=== PATIENT | male | born 1995 | race Hispanic/Latino ===

== ENCOUNTER 2021-11-20 12:30 | Emergency (ER) | payer SELFPAY ==
--- NOTE | 2021-11-20 15:14 | ER ---
Nurse's Notes [facility] Name: Casimiro Jones Age: 26 yrs Sex: Male : 1995 Arrival Date: 11/20/2021 Time: 12:32 Bed Waiting Private MD: Diagnosis: Influenza B Presentation: 11/20 12:51 Chief complaint: Patient states: he has been having throat pain for approx one week. ap3 patient states the pain has been getting worse over the last 2 days, that it wakes him up in the middle of the night. patient also complains of cough and congestion. Coronavirus screen: chills, congestion, cough unrelated to allergies. Ebola Screen: No symptoms or risks identified at this time. Initial Sepsis Screen: Does the patient meet any 2 criteria? No. Patient's initial sepsis screen is negative. Does the patient have a suspected source of infection? No. Patient's initial sepsis screen is negative. Risk Assessment: Do you want to hurt yourself or someone else? Patient reports no desire to harm self or others. Onset of symptoms was November 13, 2021. 12:51 Method Of Arrival: Ambulatory ap3 12:51 Acuity: FIONA 4 ap3 Triage Assessment: 12:54 General: Appears in no apparent distress. uncomfortable, Behavior is calm, cooperative. ap3 Pain: Complains of pain in throat. EENT: Reports nasal congestion nasal discharge pain when swallowing. Neuro: Level of Consciousness is awake, alert, obeys commands, Oriented to person, place, time, situation, Appropriate for age. Cardiovascular: Patient's skin is warm and dry. Respiratory: Reports cough that is Airway is patent Respiratory effort is even, unlabored. Historical: - Allergies: 12:53 amoxicillin; ap3 - Home Meds: 12:53 None [Active]; ap3 - PMHx: 12:53 None; ap3 - Immunization history:: Client reports having NOT received the Covid vaccine. - Social history:: Smoking status: Reported history of juuling and/or vaping. Patient uses alcohol, weekly. Screenin:55 Abuse screen: Denies threats or abuse. Nutritional screening: No deficits noted. ap3 Tuberculosis screening: No symptoms or risk factors identified. Assessment: 15:34 Reassessment: Patient appears in no apparent distress at this time. Patient and/or ss family updated on plan of care and expected duration. Pain level reassessed. Patient denies pain at this time. Patient states symptoms have improved. Vital Signs: 12:51 BP 146 / 89; Pulse 73; Resp 17; Temp 98.9; Pulse Ox 100% ; Weight 74.84 kg; Height 5 ap3 ft. 10 in. (177.80 cm); 12:51 Body Mass Index 23.67 (74.84 kg, 177.80 cm) ap3 ED Course: 12:32 Patient arrived in ED. mr 12:53 Triage completed. ap3 12:55 Arm band placed on right wrist. ap3 12:58 Jay Bell PA is PHCP. [facility] 12:58 Luigi Angelo MD is Attending Physician. [facility] 15:34 Maryam Art, MERCEDEZ is Primary Nurse. ss 15:34 Patient has correct armband on for positive identification. Bed in low position. ss 15:35 No provider procedures requiring assistance completed. Patient did not have IV access ss during this emergency room visit. Administered Medications: No medications were administered Medication: 15:34 VIS not applicable for this client. ss Outcome: 15:13 Discharge ordered by . [facility] 15:35 Discharged to home ambulatory. ss 15:35 Condition: good 15:35 Discharge instructions given to patient, Instructed on discharge instructions, follow up and referral plans. Demonstrated understanding of instructions, follow-up care. 15:35 Patient left the ED. ss Signatures: Jay Bell PA PA jmm Dilma Blake mr Maryam Art, MERCEDEZ NEWSOME Zahra Virk RN RN ap3
--- NOTE | 2021-11-20 15:14 | EDPHYS ---
Physician Documentation [facility] Name: Casimiro Jones Age: 26 yrs Sex: Male : 1995 Arrival Date: 11/20/2021 Time: 12:32 Bed Waiting Private MD: ED Physician Luigi Angelo HPI: 11/20 12:56 This 26 yrs old Male presents to ER via Ambulatory with complaints of Sore jmm Throat, Congestion. 12:56 The patient presents with sore throat. Onset: The symptoms/episode began/occurred jmm gradually, 1 week(s) ago. Modifying factors: The symptoms are alleviated by nothing, the symptoms are aggravated by nothing. Associated signs and symptoms: Pertinent positives: fever, flu-like symptoms, Sore throat. It is unknown whether or not the patient has had similar symptoms in the past. Historical: - Allergies: 12:53 amoxicillin; ap3 - Home Meds: 12:53 None [Active]; ap3 - PMHx: 12:53 None; ap3 - Immunization history:: Client reports having NOT received the Covid vaccine. - Social history:: Smoking status: Reported history of juuling and/or vaping. Patient uses alcohol, weekly. ROS: 12:56 Constitutional: Negative for fever, chills, and weight loss. jmm 12:56 Neck: Negative for injury, pain, and swelling, Cardiovascular: Negative for chest pain, palpitations, and edema, Respiratory: Negative for shortness of breath, cough, wheezing, and pleuritic chest pain, Abdomen/GI: Negative for abdominal pain, nausea, vomiting, diarrhea, and constipation, Back: Negative for injury and pain, MS/Extremity: Negative for injury and deformity, Skin: Negative for injury, rash, and discoloration, Neuro: Negative for headache, weakness, numbness, tingling, and seizure, Psych: Negative for depression, anxiety, suicide ideation, homicidal ideation, and hallucinations, Allergy/Immunology: Negative for hives, rash, and allergies, Endocrine: Negative for neck swelling, polydipsia, polyuria, polyphagia, and marked weight changes. 12:56 ENT: Positive for sore throat. 12:56 All other systems are negative. Exam: 12:56 Constitutional: This is a well developed, well nourished patient who is awake, alert, jmm and in no acute distress. Head/Face: atraumatic. Eyes: EOMI, no conjunctival erythema appreciated 12:56 Neck: Trachea midline, Supple Chest/axilla: Normal chest wall appearance and motion. Cardiovascular: Regular rate and rhythm. No edema appreciated Respiratory: Normal respirations, no respiratory distress appreciated Abdomen/GI: Non distended Back: Normal ROM Skin: General appearance color normal 12:56 ENT: Posterior pharynx: erythema, that is mild. 12:56 Musculoskeletal/extremity: ROM: intact in all extremities. 12:56 Skin: Appearance: Color: normal in color. 12:56 Neuro: Motor: is normal. 12:56 Psych: Behavior/mood is pleasant, cooperative. Vital Signs: 12:51 BP 146 / 89; Pulse 73; Resp 17; Temp 98.9; Pulse Ox 100% ; Weight 74.84 kg; Height 5 ap3 ft. 10 in. (177.80 cm); 12:51 Body Mass Index 23.67 (74.84 kg, 177.80 cm) ap3 MDM: 12:59 Patient medically screened. [facility] 15:11 Data reviewed: vital signs, nurses notes. Counseling: I had a detailed discussion with [facility] the patient and/or guardian regarding: the historical points, exam findings, and any diagnostic results supporting the discharge/admit diagnosis, lab results, the need for outpatient follow up, to return to the emergency department if symptoms worsen or persist or if there are any questions or concerns that arise at home. ED course: Patient is alert and non toxic in appearance in the ED. No signs of resp distress. Advised to follow up with pcp and otherwise given strict return precautions. Patient understood and agrees with the plan of care. . 11/20 12:55 Order name: Strep; Complete Time: 13:54 ap3 11/20 12:55 Order name: Flu; Complete Time: 13:54 ap3 11/20 12:55 Order name: COVID-19 SARS RT PCR (Document "Date of Onset" if Symptomatic); Complete ap3 Time: 14:52 11/20 13:55 Order name: Throat Culture EDMS Administered Medications: No medications were administered Disposition: 11/21 07:31 Co-signature as Attending Physician, Luigi Angelo MD. rn Disposition Summary: 11/20/21 15:13 Discharge Ordered Location: Home jmm Condition: Stable jm Diagnosis - Influenza B yaya Followup: m - With: Private Physician - When: 2 - 3 days - Reason: Recheck today's complaints, Continuance of care, Re-evaluation by your physician Discharge Instructions: - Discharge Summary Sheet jmm - Influenza, Adult jmm Forms: - Medication Reconciliation Form [facility] - Thank You Letter madyson - Antibiotic Education yaya - Prescription Opioid Use yaya Signatures: Dispatcher [employer] EDJay Jiang PA PA jmm Nieto, Roman, MD MD rn Zhara Virk RN RN ap3
[2021-11-20 15:50] VITALS: BP 146/89; TEMP 98.9; O2SAT 100
== END 2021-11-20 15:35 | disposition home or self-care (01) ==
LOC: ER 12:30
DX: J10.1 Influenza due to other identified influenza virus with other respiratory manifestations (principal); Z20.822 Contact with and (suspected) exposure to COVID-19; Z88.1 Allergy status to other antibiotic agents
CPT/HCPCS: 87070; 87081; 87804; 99281; U0003

== ENCOUNTER 2021-12-29 12:03 | Emergency (ER) | payer SELFPAY ==
[2021-12-29 12:39] LABS: Urine Blood Negative (Negative); Urine Glucose Negative (Negative); Urine Protein Negative (Negative); Urine Specific Gravity 1.025 (1.005-1.030); Urine pH 5.5 (5.0-7.0)
[2021-12-29] MEDS ORDERED: ASPIRIN 81 MG CHEWABLE TABLET ONE (12:51)
[2021-12-29] MEDS ORDERED: NA CHLORIDE 0.9% 500 ML ONE (12:51)
[2021-12-29 12:52] LABS: Absolute Lymphocytes (CBC) 2.3 K/uL (0.7-4.9); Hematocrit 40.1 % (39.6-49.0); Lymphocytes % 37.2 % (15.3-44.8); MCV 84.3 fL (80-100); MPV 8.3 fL (7.6-11.3); RBC Red Blood Cell Count 4.76 M/uL (4.33-5.43)
[2021-12-29 12:58] LABS: Barbiturates NEGATIVE (NEGATIVE); Benzodiazepines NEGATIVE (NEGATIVE); Cocaine NEGATIVE (NEGATIVE); METHAMPHETAM NEGATIVE (NEGATIVE); Methadone NEGATIVE (NEGATIVE); Opiates NEGATIVE (NEGATIVE); Phencyclidine NEGATIVE (NEGATIVE); THC Cannibis NEGATIVE (NEGATIVE)
--- NOTE | 2021-12-29 13:05 | RAD REPORT ---
EXAM DESCRIPTION: Daron Single View12/29/2021 12:51 pm CLINICAL HISTORY: Chest pain COMPARISON: none FINDINGS: The lungs appear clear of acute infiltrate. The heart is normal size IMPRESSION: No acute abnormalities displayed
[2021-12-29 13:08] LABS: Albumin 4.5 g/dL (3.4-5.0); Bilirubin Direct 0.2 mg/dL (0-0.2); Bilirubin Total 1.2 mg/dL (0.2-1.0); Magnesium 2.3 mg/dL (1.8-2.4); Potassium 3.6 mmol/L (3.5-5.1); Protein, Total 8.1 g/dL (6.4-8.2); Troponin High Sensitivity 4.6 pg/mL (<58.9)
[2021-12-29] MEDS ORDERED: FAMOTIDINE 20 MG/2 ML VIAL IV ONE (14:29)
--- NOTE | 2021-12-29 15:42 | EDPHYS ---
Physician Documentation [facility] Name: Casimiro Jones Age: 26 yrs Sex: Male : 1995 Arrival Date: 12/29/2021 Time: 12:04 Bed 18 Private MD: ED Physician David Johnson HPI: 12/29 14:00 This 26 yrs old Male presents to ER via Ambulatory with complaints of Chest kameron Pain, Numbness Of Arm - left. 14:00 The patient or guardian reports chest pain that is located primarily in the substernal kameron area. The pain radiates to the left arm. Associated signs and symptoms: The patient has no apparent associated signs or symptoms. The chest pain is described as squeezing. Duration: The patient or guardian reports a single episode, that is still ongoing, but improving. Modifying factors: The symptoms are alleviated by nothing. the symptoms are aggravated by nothing. Severity of pain: At its worst the pain was mild in the emergency department the pain is unchanged. The patient has not experienced similar symptoms in the past. Historical: - Allergies: 12:09 Amoxicillin; ap3 - Home Meds: 12:09 None [Active]; ap3 - PMHx: 12:09 None; ap3 - PSHx: 12:09 None; ap3 - Immunization history:: Adult Immunizations unknown. - Social history:: Smoking status: Reported history of juuling and/or vaping. - Family history:: not pertinent. ROS: 14:00 Constitutional: Negative for fever, chills, and weight loss, Eyes: Negative for injury, kameron pain, redness, and discharge, ENT: Negative for injury, pain, and discharge, Neck: Negative for injury, pain, and swelling, Respiratory: Negative for shortness of breath, cough, wheezing, and pleuritic chest pain, Abdomen/GI: Negative for abdominal pain, nausea, vomiting, diarrhea, and constipation, Back: Negative for injury and pain, : Negative for injury, bleeding, discharge, and swelling, MS/Extremity: Negative for injury and deformity, Skin: Negative for injury, rash, and discoloration, Neuro: Negative for headache, weakness, numbness, tingling, and seizure, Psych: Negative for depression, anxiety, suicide ideation, homicidal ideation, and hallucinations, Allergy/Immunology: Negative for hives, rash, and allergies, Endocrine: Negative for neck swelling, polydipsia, polyuria, polyphagia, and marked weight changes, Hematologic/Lymphatic: Negative for swollen nodes, abnormal bleeding, and unusual bruising. 14:00 Cardiovascular: Positive for chest pain, of the chest. Exam: 14:00 Constitutional: This is a well developed, well nourished patient who is awake, alert, kameron and in no acute distress. Head/Face: Normocephalic, atraumatic. Eyes: Pupils equal round and reactive to light, extra-ocular motions intact. Lids and lashes normal. Conjunctiva and sclera are non-icteric and not injected. Cornea within normal limits. Periorbital areas with no swelling, redness, or edema. ENT: Nares patent. No nasal discharge, no septal abnormalities noted. Tympanic membranes are normal and external auditory canals are clear. Oropharynx with no redness, swelling, or masses, exudates, or evidence of obstruction, uvula midline. Mucous membranes moist. Neck: Trachea midline, no thyromegaly or masses palpated, and no cervical lymphadenopathy. Supple, full range of motion without nuchal rigidity, or vertebral point tenderness. No Meningismus. Chest/axilla: Normal chest wall appearance and motion. Nontender with no deformity. No lesions are appreciated. Cardiovascular: Regular rate and rhythm with a normal S1 and S2. No gallops, murmurs, or rubs. Normal PMI, no JVD. No pulse deficits. Respiratory: Lungs have equal breath sounds bilaterally, clear to auscultation and percussion. No rales, rhonchi or wheezes noted. No increased work of breathing, no retractions or nasal flaring. Abdomen/GI: Soft, non-tender, with normal bowel sounds. No distension or tympany. No guarding or rebound. No evidence of tenderness throughout. Back: No spinal tenderness. No costovertebral tenderness. Full range of motion. Male : Normal genitalia with no discharge or lesions. Skin: Warm, dry with normal turgor. Normal color with no rashes, no lesions, and no evidence of cellulitis. MS/ Extremity: Pulses equal, no cyanosis. Neurovascular intact. Full, normal range of motion. Neuro: Awake and alert, GCS 15, oriented to person, place, time, and situation. Cranial nerves II-XII grossly intact. Motor strength 5/5 in all extremities. Sensory grossly intact. Cerebellar exam normal. Normal gait. Psych: Awake, alert, with orientation to person, place and time. Behavior, mood, and affect are within normal limits. 14:00 ECG was reviewed by the Attending Physician. 14:30 ECG was reviewed by the Attending Physician. [facility] Vital Signs: 12:08 BP 138 / 86; Pulse 74; Resp 18; Temp 97.3(TE); Pulse Ox 100% on R/A; Weight 74.84 kg ap3 (R); Height 5 ft. 9 in. (175.26 cm); Pain 8/10; 13:11 BP 136 / 77; Pulse 96; Resp 16; Pulse Ox 100% ; Pain 0/10; mb8 14:42 Pain 0/10; mb8 12:08 Body Mass Index 24.37 (74.84 kg, 175.26 cm) ap3 MDM: 12:18 Patient medically screened. [facility] 14:02 Differential diagnosis: abnormal EKG, acute myocardial infarction, acute pericarditis, kameron anxiety, coronary artery disease chest wall pain, Cholelithiasis esophagitis, pancreatitis, pericarditis, pulmonary embolus, stable angina, unstable angina. HEART Score: History: Slightly Suspicious (0), ECG: Normal (0), Age: < or = 45 years (0), Risk Factors: No Risk Factors Known (0), Troponin: < or = 1 x Normal Limit (0). The patient's deep vein thrombosis risk score was calculated as follows: Total Score: 0. This patient was found to be at low risk for a deep vein thrombosis by using the Well's assessment criteria. The patient's pulmonary embolism risk score was calculated as follows: Total Score: 0-2 points. This patient was found to be at low risk for a pulmonary embolism by using the Well's assessment criteria. TRES Risk Score: TOTAL SCORE = 0. Data reviewed: vital signs, nurses notes, lab test result(s), EKG, radiologic studies, plain films. Data interpreted: monitor car operator: rate is 96 beats/min, rhythm is regular, Pulse oximetry: on room air is 100 %. Test interpretation: by ED physician or midlevel provider: ECG, plain radiologic studies. Counseling: I had a detailed discussion with the patient and/or guardian regarding: the historical points, exam findings, and any diagnostic results supporting the discharge/admit diagnosis, lab results, radiology results, the need for outpatient follow up, for definitive care, a telegraph equipment maintainer, a family practitioner. 12/29 12:22 Order name: Basic Metabolic Panel; Complete Time: 13:33 kameron 12/29 12:22 Order name: CBC with Diff; Complete Time: 13:33 kameron 12/29 12:22 Order name: LFT's; Complete Time: 13:33 kameron 12/29 12:22 Order name: Magnesium; Complete Time: 13:33 kameron 12/29 12:22 Order name: NT PRO-BNP; Complete Time: 13:33 kameron 12/29 12:22 Order name: Troponin HS; Complete Time: 13:33 kameron 12/29 12:22 Order name: XRAY Chest (1 view); Complete Time: 13:33 kameron 12/29 12:22 Order name: EKG; Complete Time: 12:23 kameron 12/29 12:22 Order name: UDS; Complete Time: 13:33 kameron 12/29 12:39 Order name: Urine Dipstick-Ancillary; Complete Time: 13:33 EDMS 12/29 13:34 Order name: Troponin High Sensitivity: 3PM; Complete Time: 15:38 kameron 12/29 12:22 Order name: Cardiac monitoring; Complete Time: 12:23 kameron 12/29 12:22 Order name: EKG - Nurse/Tech; Complete Time: 12:23 kameron 12/29 12:22 Order name: IV Saline Lock; Complete Time: 12:23 kameron 12/29 12:22 Order name: Labs collected and sent; Complete Time: 12:23 [facility] 12/29 12:22 Order name: O2 Per Protocol; Complete Time: 12:23 kameron 12/29 12:22 Order name: O2 Sat Monitoring; Complete Time: 12:23 kameron 12/29 12:22 Order name: Bilateral blood pressure; Complete Time: 12:31 kameron 12/29 12:22 Order name: Urine Dipstick-Ancillary (obtain specimen); Complete Time: 12:55 kameron 12/29 13:59 Order name: EKG; Complete Time: 14:00 kameron 12/29 13:59 Order name: EKG - Nurse/Tech; Complete Time: 14:30 [facility] EC:00 Rate is 73 beats/min. Rhythm is regular. QRS [place] is Normal. AL interval is normal. QRS kameron interval is normal. QT interval is normal. No Q waves. T waves are Normal. No ST changes noted. Clinical impression: Normal ECG and No evidence of ischemia. Interpreted by me. Reviewed by me. 14:30 Rate is 79 beats/min. Rhythm is regular. QRS [place] is Normal. AL interval is normal. QRS kameron interval is normal. QT interval is normal. No Q waves. T waves are Normal. No ST changes noted. Clinical impression: Normal ECG and No evidence of ischemia. Interpreted by me. Reviewed by me. Administered Medications: 12:46 Drug: NS 0.9% 500 ml Route: IV; Rate: bolus; Site: right antecubital; mb8 14:11 Follow up: Response: No adverse reaction; IV Status: Completed infusion mb8 12:47 Drug: Aspirin Chewable Tablet 162 mg Route: PO; mb8 14:11 Follow up: Response: No adverse reaction mb8 14:24 Drug: Pepcid (famotidine) 20 mg Route: IVP; Site: right antecubital; mb8 14:42 Follow up: Pain 0/10 Adult; Response: No adverse reaction mb8 Disposition Summary: 12/29/21 15:41 Discharge Ordered Location: Home kameron Problem: new kameron Symptoms: have improved kameron Condition: Stable kameron Diagnosis - Chest pain, unspecified kameron Followup: kameron - With: Private Physician - When: 2 - 3 days - Reason: Recheck today's complaints, Continuance of care, Re-evaluation by your physician Followup: kameron - With: - When: 2 - 3 days - Reason: Recheck today's complaints, Re-evaluation by your physician Discharge Instructions: - Discharge Summary Sheet kameron - Nonspecific Chest Pain, Adult kameron - Nonspecific Chest Pain, Adult, [id number] kameron - Aspirin and Your Heart kameron Forms: - Medication Reconciliation Form kameron - Thank You Letter kameron - Antibiotic Education kameron - Prescription Opioid Use kameron Prescriptions: - Pepcid 20 mg Oral Tablet - take 1 tablet by ORAL route every 12 hours for 10 days; 20 tablet; Refills: 0, kameron Product Selection Permitted Signatures: Dispatcher [employer] David Baird MD MD cha Prokisch, Amanda RN RN ap3 Kyaw Rosa RN RN mb8
--- NOTE | 2021-12-29 15:42 | ER ---
Nurse's Notes [facility] Name: Casimiro Jones Age: 26 yrs Sex: Male : 1995 Arrival Date: 12/29/2021 Time: 12:04 Bed 18 Private MD: Diagnosis: Chest pain, unspecified Presentation: 12/29 12:08 Chief complaint: Patient states: I started having tightness in my chest about an hour ap3 ago and I fell dizzy and my left arm is numb. Coronavirus screen: At this time, the client does not indicate any symptoms associated with coronavirus-19. Ebola Screen: No symptoms or risks identified at this time. Initial Sepsis Screen: Does the patient meet any 2 criteria? No. Patient's initial sepsis screen is negative. Does the patient have a suspected source of infection? No. Patient's initial sepsis screen is negative. Risk Assessment: Do you want to hurt yourself or someone else? Patient reports no desire to harm self or others. Onset of symptoms was December 29, 2021 at 11:00. 12:08 Method Of Arrival: Ambulatory ap3 12:08 Acuity: FIONA 3 ap3 Triage Assessment: 12:09 General: Appears in no apparent distress. uncomfortable, Behavior is calm, cooperative. ap3 Pain: Complains of pain in anterior aspect of left upper chest Pain radiates to left arm. EENT: No deficits noted. No signs and/or symptoms were reported regarding the EENT system. Neuro: Level of Consciousness is awake, alert, obeys commands. Cardiovascular: Reports chest pain, lightheadedness, Denies nausea, vomiting. Respiratory: No deficits noted. GI: No deficits noted. No signs and/or symptoms were reported involving the gastrointestinal system. : No deficits noted. No signs and/or symptoms were reported regarding the genitourinary system. Derm: No deficits noted. No signs and/or symptoms reported regarding the dermatologic system. Musculoskeletal: No deficits noted. No signs and/or symptoms reported regarding the musculoskeletal system. Historical: - Allergies: 12:09 Amoxicillin; ap3 - Home Meds: 12:09 None [Active]; ap3 - PMHx: 12:09 None; ap3 - PSHx: 12:09 None; ap3 - Immunization history:: Adult Immunizations unknown. - Social history:: Smoking status: Reported history of juuling and/or vaping. - Family history:: not pertinent. Screenin:29 Abuse screen: Denies threats or abuse. Denies injuries from another. Nutritional mb8 screening: No deficits noted. Tuberculosis screening: No symptoms or risk factors identified. Fall Risk No fall in past 12 months (0 pts). No secondary diagnosis (0 pts). IV access (20 points). Ambulatory Aid- None/Bed Rest/Nurse Assist (0 pts). Gait- Normal/Bed Rest/Wheelchair (0 pts) Mental Status- Oriented to own ability (0 pts). Total Brown Fall Scale indicates No Risk (0-24 pts). Assessment: 12:24 Pain: Denies pain. Pain began 2 hours ago. mb8 12:24 Cardiovascular: Denies chest pain, chest pain at this, reports the pain has since went mb8 away. Reports left arm tingling and dry mouth. Heart tones S1 S2 Capillary refill < 3 seconds is brisk Pulses are 2+ in right radial artery and left radial artery Rhythm is sinus rhythm Chest pain is denied. 13:49 Reassessment: No changes from previously documented assessment. Patient and/or family mb8 updated on plan of care and expected duration. Pain level reassessed. Patient is alert, oriented x 3, equal unlabored respirations, skin warm/dry/pink. Patient denies pain at this time. 15:00 Reassessment: No changes from previously documented assessment. Patient and/or family mb8 updated on plan of care and expected duration. Pain level reassessed. Patient is alert, oriented x 3, equal unlabored respirations, skin warm/dry/pink. Patient denies pain at this time. Pain: Denies pain. Vital Signs: 12:08 BP 138 / 86; Pulse 74; Resp 18; Temp 97.3(TE); Pulse Ox 100% on R/A; Weight 74.84 kg ap3 (R); Height 5 ft. 9 in. (175.26 cm); Pain 8/10; 13:11 BP 136 / 77; Pulse 96; Resp 16; Pulse Ox 100% ; Pain 0/10; mb8 14:42 Pain 0/10; mb8 12:08 Body Mass Index 24.37 (74.84 kg, 175.26 cm) ap3 ED Course: 12:04 Patient arrived in ED. am2 12:08 Arm band placed on right wrist. ap3 12:09 Triage completed. ap3 12:11 David Johnson MD is Attending Physician. kameron 12:11 Kyaw Rosa, MERCEDEZ is Primary Nurse. mb8 12:23 Patient has correct armband on for positive identification. Bed in low position. Call mb8 light in reach. Side rails up X2. Client placed on continuous cardiac and pulse oximetry monitoring. NIBP monitoring applied. monitoring engineer on. 12:24 No provider procedures requiring assistance completed. Inserted saline lock: 18 gauge mb8 in right antecubital area, using aseptic technique. Patient maintains SpO2 saturation greater than 95% on room air. 12:47 X-ray in room. mb8 12:47 UDS Sent. mb8 12:53 XRAY Chest (1 view) In Process Unspecified. EDMS 15:00 Repeat lab(s) drawn. by wa, sent to lab. mb8 15:06 Troponin High Sensitivity: 3PM Sent. mb8 15:41 Maxi Bell MD is Referral Physician. kameron 16:08 IV discontinued, intact, bleeding controlled, No redness/swelling at site. Pressure mb8 dressing applied. Administered Medications: 12:46 Drug: NS 0.9% 500 ml Route: IV; Rate: bolus; Site: right antecubital; mb8 14:11 Follow up: Response: No adverse reaction; IV Status: Completed infusion mb8 12:47 Drug: Aspirin Chewable Tablet 162 mg Route: PO; mb8 14:11 Follow up: Response: No adverse reaction mb8 14:24 Drug: Pepcid (famotidine) 20 mg Route: IVP; Site: right antecubital; mb8 14:42 Follow up: Pain 0/10 Adult; Response: No adverse reaction mb8 Medication: 12:29 VIS not applicable for this client. mb8 Outcome: 15:41 Discharge ordered by . kameron 16:08 Discharged to home with significant other. mb8 16:08 Condition: stable 16:08 Discharge instructions given to patient, Instructed on discharge instructions, follow up and referral plans. medication usage, Demonstrated understanding of instructions, follow-up care, medications, Prescriptions given X 1. 16:09 Patient left the ED. mb8 Signatures: Dispatcher [employer] EDAL David Johnson MD MD cha Moreno, Amanda am2 Zahra Virk, RN RN ap3 Kyaw Rosa, RN RN mb8
[2021-12-29 16:29] VITALS: TEMP 97.3; O2SAT 100
[2021-12-29 16:39] VITALS: BP 136/77
--- NOTE | 2021-12-30 08:56 | EKG ---
Test Date: 2021-12-29 Test Time: 14:24:11 Accounting Manager Cpa: NEMO MEASUREMENT RESULTS: Intervals: Rate: 79 [place]: 148 QRSD: 86 QT: 360 QTc: 412 Bradford: P: 62 [place]: 148 QRS: 88 T: 56 INTERPRETIVE STATEMENTS: Normal sinus rhythm Normal ECG Compared to ECG 12/29/2021 12:19:37 No significant changes Electronically Signed On 12-30-21 08:55:51 CDT by Maxi Bell
--- NOTE | 2021-12-30 08:57 | EKG ---
Test Date: 2021-12-29 Test Time: 12:19:37 Photographic Spotter: LLOYD MEASUREMENT RESULTS: Intervals: Rate: 73 OR: 138 QRSD: 90 QT: 360 QTc: 396 Spencer: P: 26 OR: 138 QRS: 84 T: 38 INTERPRETIVE STATEMENTS: Normal sinus rhythm Normal ECG No previous ECG available for comparison Electronically Signed On 12-30-21 08:56:00 CDT by Maxi Bell
== END 2021-12-29 16:09 | disposition home or self-care (01) ==
LOC: ER 12:03
DX: R07.89 Other chest pain (principal); Z88.1 Allergy status to other antibiotic agents
CPT/HCPCS: 36415; 71045; 80048; 80076; 80307; 81003; 83735; 83880; 84484; 85025; 93005; 96361; 96374; 99285; J7040

== ENCOUNTER 2024-07-29 00:07 | Emergency (ER) | payer SELFPAY ==
[2024-07-29] MEDS ORDERED: NA CHLORIDE 0.9% 1,000 ML ONE (00:44)
[2024-07-29] MEDS ORDERED: ONDANSETRON 4 MG/2 ML VIAL ONE (00:44)
[2024-07-29] MEDS ORDERED: FAMOTIDINE 20 MG/2 ML VIAL IV ONE (01:05)
[2024-07-29] MEDS ORDERED: PANTOPRAZOLE 40 MG INJ ONE (01:05)
[2024-07-29] MEDS ORDERED: MAGNES/ALUMIN/SIMET 30ML UCUP ONE (01:05)
[2024-07-29 01:19] LABS: Absolute Eosinophils 0.1 K/uL (0-0.5); Absolute Lymphocytes (CBC) 1.6 K/uL (0.7-4.9); Absolute Monocytes 0.5 K/uL (0.1-1.3); Absolute Neutrophil 3.9 K/uL (1.8-8.0); Basophils % 0.4 % (0-1.3); Eosinophils % 2.2 % (0-4.4); Hemoglobin 14.1 g/dL (13.6-17.9); Lymphocytes % 25.9 % (15.3-44.8); MCH 29.9 pg (27.0-35.0); MCHC 35.1 g/dL (32.0-36.0); MCV 85.3 fL (80-100); MPV 8.2 fL (7.6-11.3); Monocytes % 8.3 % (3.3-12.3); Neutrophils % 63.2 % (41.7-73.7); Platelets 203 thou/uL (152-406); RBC Red Blood Cell Count 4.69 M/uL (4.33-5.43); Red Cell Distribution Width 12.4 % (12.1-15.2)
[2024-07-29 01:20] LABS: PT Prothrombin Time 11.9 SECONDS (10-13.0); Protime INR 1.05
[2024-07-29 01:23] LABS: Influenza A Ag Negative; Influenza B Ag Negative; SARS-CoV-2 Antigen Rapid Res Negative (Negative)
[2024-07-29 01:30] LABS: Albumin 4.1 g/dL (3.4-5.0); Albumin/Globulin Ratio 1.1 (1.1-1.8); Anion Gap 9.8 mEq/L (5.0-15.0); Bilirubin Direct 0.3 mg/dL (0-0.2); Bilirubin Indirect, Calculated 1.5 mg/dL (0.2-0.8); Bilirubin Total 1.8 mg/dL (0.2-1.0); Globulin 3.6 g/dL (2.3-3.5); Magnesium 2.3 mg/dL (1.6-2.4); Potassium 3.8 mEq/L (3.5-5.1); Protein, Total 7.7 g/dL (6.4-8.2)
--- NOTE | 2024-07-29 04:52 | EDPHYS ---
Physician Documentation [facility] Name: Casimiro Jones Age: 28 yrs Sex: Male : 1995 Arrival Date: 07/29/2024 Time: 00:07 Bed 14 Private MD: ED Physician Andriy Murphy HPI: 07/29 00:28 This 28 yrs old Male presents to ER via Ambulatory with complaints of sp4 Epigastric Pain, Nausea/Vomiting. 07/30 02:19 Had positive epigastric pain and nausea vomiting.. sp4 Historical: - Allergies: 07/29 00:19 Amoxicillin; vc1 - Home Meds: 00:19 Pepcid Oral [Active]; vc1 - PMHx: 00:19 acid reflux; vc1 - PSHx: 00:19 None; vc1 - Immunization history:: Client reports having NOT received the Covid vaccine. - Infectious Disease History:: Denies. - Social history:: Smoking status: Reported history of juuling and/or vaping. Patient uses alcohol, on a daily basis. 8 beers. - Family history:: not pertinent. ROS: 07/30 02:19 Constitutional: Negative for fever, chills, and weight loss, positive for epigastric sp4 pain nausea vomiting. Positive for heartburn All other systems are negative, Exam: 02:19 Constitutional: This is a well developed, well nourished patient who is awake, alert, sp4 and in no acute distress. Head/Face: Normocephalic, atraumatic. Eyes: Pupils equal round and reactive to light, extra-ocular motions intact. Lids and lashes normal. Conjunctiva and sclera are not injected. Cornea within normal limits. Periorbital areas with no swelling, redness, or edema. ENT: Nares patent. No nasal discharge, no septal abnormalities noted. Tympanic membranes are normal and external auditory canals are clear. Oropharynx with no redness, swelling, or masses, exudates, or evidence of obstruction, uvula midline. Mucous membranes moist. Neck: Trachea midline, no thyromegaly or masses palpated, and no cervical lymphadenopathy. Supple, full range of motion without nuchal rigidity, or vertebral point tenderness. Chest/axilla: Normal chest wall appearance and motion. Nontender with no deformity. No lesions are appreciated. Cardiovascular: Regular rate and rhythm with a normal S1 and S2. No gallops, murmurs, or rubs. Normal PMI, no JVD. No pulse deficits. Respiratory: Lungs have equal breath sounds bilaterally, clear to auscultation and percussion. No rales, rhonchi or wheezes noted. No increased work of breathing, no retractions or nasal flaring. Abdomen/GI: Soft, with normal bowel sounds. No distension or tympany. No guarding or rebound. No evidence of tenderness throughout. Back: No spinal tenderness. No costovertebral tenderness. Skin: Warm, dry with normal turgor. Normal color with no rashes, no lesions, and no evidence of cellulitis. MS/ Extremity: Pulses equal, no cyanosis. Neurovascular intact. Full, normal range of motion. Neuro: Awake and alert, GCS 15, oriented to person, place, time, and situation. Cranial nerves II-XII grossly intact. Motor strength 5/5 in all extremities. Sensory grossly intact. Psych: Awake, alert, with orientation to person, place and time. Behavior, mood, and affect are within normal limits Vital Signs: 07/29 00:17 Weight 79.38 kg; Height 5 ft. 9 in. ; Pain 4/10; vc1 00:22 BP 134 / 97; Pulse 82; Resp 18; Temp 98.9; Pulse Ox 100% ; vc1 01:56 BP 130 / 90; Pulse 74; Resp 20; Temp 98; Pulse Ox 98% on R/A; MAP 101 mmHg; aa10 05:02 BP 123 / 89; Pulse 66; Resp 20; Temp 98; Pulse Ox 100% on R/A; aa10 00:17 Body Mass Index 25.84 (79.38 kg, 175.26 cm) vc1 00:17 Pain Scale: Adult vc1 Penelope Coma Score: 07/30 02:19 Eye Response: spontaneous(4). Motor Response: obeys commands(6). Verbal Response: sp4 oriented(5). Total: 15. MDM: 07/29 00:29 Medical Screening Exam initiated sp4 07/30 02:19 Differential diagnosis: Nonspecific abd pain, gastritis, viral gastroenteritis, sp4 gastroenteritis. Data reviewed: vital signs, nurses notes, lab test result(s). Consideration of Admission/Observation Escalation of care including admission/observation considered. ED course: Patient has much improved. Stable for discharge home with medications listed below. 07/29 00:28 Order name: Basic Metabolic Panel; Complete Time: 04:46 sp4 07/29 00:28 Order name: CBC with Diff; Complete Time: 04:46 sp4 07/29 00:28 Order name: LFT's; Complete Time: 04:46 sp4 07/29 00:28 Order name: Magnesium; Complete Time: 04:46 sp4 07/29 00:28 Order name: PT-INR; Complete Time: 04: sp4 07/29 00:29 Order name: Lipase; Complete Time: 04:46 sp4 07/29 00:29 Order name: COVID-19 Ag + Flu A+B Ag; Complete Time: : sp4 07/29 00:28 Order name: IV Saline Lock; Complete Time: 01:4 07/29 00:28 Order name: Labs collected and sent; Complete Time: 01:4 07/29 00:28 Order name: O2 Per Protocol; Complete Time: :4 07/29 00:28 Order name: O2 Sat Monitoring; Complete Time: 01:4 Administered Medications: 07/29 01:14 Drug: NS 0.9% IV 1000 ml IV at 1 bolus Per protocol; to be given as a bolus over 60 aa10 minutes Route: IV; Rate: 1 bolus; Site: left antecubital; :57 Follow up: IV Status: Completed infusion; IV Intake: 1000ml aa10 01:58 Follow up: Response: No adverse reaction; Marked relief of symptoms aa10 01:14 Drug: Ondansetron IVP 8 mg IVP once; over 2 minutes Route: IVP; Site: left antecubital; aa10 05:04 Follow up: Response: No adverse reaction; Marked relief of symptoms aa10 01:14 Drug: Famotidine IVP 20 mg IVP once; dilute with 10 mL 0.9% NaCl; give over 2 minutes aa10 Route: IVP; Site: left antecubital; :57 Follow up: Response: No adverse reaction; Marked relief of symptoms aa10 01:14 Drug: Alum-Mag Hydroxide-Simeth PO Suspension (200 mg-200 mg-20 mg/5 mL) 30 ml PO once aa10 Route: PO; 01:57 Follow up: Response: No adverse reaction; Marked relief of symptoms aa10 01:14 Drug: Pantoprazole PO 40 mg PO once Route: PO; aa10 01:57 Follow up: Response: No adverse reaction; Marked relief of symptoms aa10 Disposition Summary: 07/29/24 04:51 Discharge Ordered Notes: Location: Home sp4 Problem: new sp4 Symptoms: have improved sp4 Condition: Stable sp4 Diagnosis - Acute gastritis sp4 - Gastro-esophageal reflux disease with esophagitis sp4 Followup: sp4 - With: Private Physician - When: 7 - 10 days - Reason: Recheck today's complaints Discharge Instructions: - Discharge Summary Sheet sp4 - Gastroesophageal Reflux Disease, Adult sp4 Forms: - Fax Form aa10 - Work release form aa10 Prescriptions: - omeprazole 40 mg Oral capsule,delayed release (e.c.) - dissolve 1 capsule ORAL route once daily for 30 days; 30 capsule; Refills: 0, sp4 Product Selection Permitted - ondansetron 8 mg Oral Tablet,disintegrating - take 1 tablet ORAL route every 8 hours PRN nausea; 30 tablet; Refills: 0, sp4 Product Selection Permitted Signatures: Dispatcher [employer] EDAnastasiya Reese RN RN vc1 Andriy Murphy MD MD sp4 Deysi Andrews RN RN aa10 Corrections: (The following items were deleted from the chart) 00:20 00:19 PMHx: None; vc1 vc1
--- NOTE | 2024-07-29 04:52 | ER ---
Nurse's Notes [facility] Name: Casimiro Jones Age: 28 yrs Sex: Male : 1995 Arrival Date: 07/29/2024 Time: 00:07 Bed 14 Private MD: Diagnosis: Acute gastritis;Gastro-esophageal reflux disease with esophagitis Presentation: 07/29 00:17 Chief complaint: Patient states: after eating started feeling really nauseous then I vc1 threw up. Then 20 minutes later drank some water and threw up. Then when I went to lay down I threw up a third time. Coronavirus screen: Client denies travel out of the [place] in the last 14 days. At this time, the client does not indicate any symptoms associated with coronavirus-19. Ebola Screen: Patient negative for fever greater than or equal to 101.5 degrees Fahrenheit, and additional compatible Ebola Virus Disease symptoms Patient denies exposure to infectious person. Patient denies travel to an Ebola-affected area in the 21 days before illness onset. No symptoms or risks identified at this time. Initial Sepsis Screen: Does the patient meet any 2 criteria? No. Patient's initial sepsis screen is negative. Does the patient have a suspected source of infection? No. Patient's initial sepsis screen is negative. Risk Assessment: Do you want to hurt yourself or someone else? Patient reports no desire to harm self or others. Onset of symptoms was July 28, 2024 at 18:30. Care prior to arrival: Medication(s) given: pepcid. 00:17 Method Of Arrival: Ambulatory vc1 00:17 Acuity: FIONA 3 vc1 Triage Assessment: 00:20 General: Appears in no apparent distress. uncomfortable, slender, well groomed, well vc1 developed, well nourished, Behavior is cooperative, anxious. Pain: Complains of pain in epigastric area Pain does not radiate. Pain currently is 5 out of 10 on a pain scale. EENT: No deficits noted. No signs and/or symptoms were reported regarding the EENT system. Neuro: Level of Consciousness is awake, alert, obeys commands, Oriented to person, place, time, situation, Appropriate for age. Cardiovascular: Capillary refill < 3 seconds Patient's skin is warm and dry. Respiratory: Airway is patent Respiratory effort is even, unlabored, Respiratory pattern is regular, symmetrical, Breath sounds are clear bilaterally. GI: Abdomen is flat, non-distended, Reports intolerance of fluids, intolerance of food, nausea, vomiting, since a couple of hours after 4:30. : No deficits noted. No signs and/or symptoms were reported regarding the genitourinary system. Derm: Skin is intact, is healthy with good turgor, Skin is dry, Skin is normal, Skin temperature is warm. Musculoskeletal: Circulation, motion, and sensation intact. Range of motion: intact in all extremities. Historical: - Allergies: 00:19 Amoxicillin; vc1 - Home Meds: 00:19 Pepcid Oral [Active]; vc1 - PMHx: 00:19 acid reflux; vc1 - PSHx: 00:19 None; vc1 - Immunization history:: Client reports having NOT received the Covid vaccine. - Infectious Disease History:: Denies. - Social history:: Smoking status: Reported history of juuling and/or vaping. Patient uses alcohol, on a daily basis. 8 beers. - Family history:: not pertinent. Screenin:20 [facility] ED Fall Risk Assessment (Adult) History of falling in the last 3 months, vc1 including since admission No falls in past 3 months (0 pts) Confusion or Disorientation No (0 pts) Intoxicated or Sedated No (0 pts) Impaired Gait No (0 pts) Mobility Assist Device Used No (0 pt) Altered Elimination No (0 pt) Score/Fall Risk Level 0 - 2 = Low Risk Oriented to surroundings, Maintained a safe environment, Educated pt \T\ family on fall prevention, incl call for assistance when getting out of bed. Abuse screen: Denies threats or abuse. Nutritional screening: No deficits noted. Tuberculosis screening: No symptoms or risk factors identified. Assessment: 01:53 General: Appears in no apparent distress. comfortable, well groomed, well developed, aa10 Behavior is calm, cooperative, appropriate for age, Reports feeling ill for 12-24 hours. Pain: Complains of pain in abdomen Pain does not radiate. Pain currently is 5 out of 10 on a pain scale. Quality of pain is described as dull, Pain began gradually, Is continuous, Alleviated by medications, rest, Aggravated by exercise, increased activity, Noted to be guarding. Neuro: No deficits noted. Level of Consciousness is awake, alert, obeys commands, Oriented to person, place, time, situation, Appropriate for age Garage Mechanic are equal bilaterally Moves all extremities. Gait is steady, Speech is normal, Facial symmetry appears normal, Pupils are PERRLA. Cardiovascular: No deficits noted. Capillary refill < 3 seconds. Respiratory: No deficits noted. Airway is patent. GI: No deficits noted. Abdomen is non-distended, Abdomen is tender to palpation X 4 quads. 05:03 Reassessment: Patient appears in no apparent distress at this time. No changes from aa10 previously documented assessment. Patient and/or family updated on plan of care and expected duration. Pain level reassessed. Patient is alert, oriented x 3, equal unlabored respirations, skin warm/dry/pink. Patient states feeling better. Patient states symptoms have improved. Vital Signs: 00:17 Weight 79.38 kg; Height 5 ft. 9 in. ; Pain 4/10; vc1 00:22 BP 134 / 97; Pulse 82; Resp 18; Temp 98.9; Pulse Ox 100% ; vc1 01:56 BP 130 / 90; Pulse 74; Resp 20; Temp 98; Pulse Ox 98% on R/A; MAP 101 mmHg; aa10 05:02 BP 123 / 89; Pulse 66; Resp 20; Temp 98; Pulse Ox 100% on R/A; aa10 00:17 Body Mass Index 25.84 (79.38 kg, 175.26 cm) vc1 00:17 Pain Scale: Adult vc1 Penelope Coma Score: 07/30 02:19 Eye Response: spontaneous(4). Motor Response: obeys commands(6). Verbal Response: sp4 oriented(5). Total: 15. ED Course: 07/29 00:09 Patient arrived in ED. jj6 00:19 Triage completed. vc1 00:20 Arm band placed on right wrist. vc1 00:21 Patient placed in waiting room, Patient notified of wait time. vc1 00:28 Andriy Murphy MD is Attending Physician. sp4 01:01 COVID-19 Ag + Flu A+B Ag Sent. vk 01:01 Lipase Sent. vk 01:01 Basic Metabolic Panel Sent. vk 01:01 CBC with Diff Sent. vk 01:01 LFT's Sent. vk 01:01 Magnesium Sent. vk 01:02 PT-INR Sent. vk 01:02 Initial lab(s) drawn, by me, sent to lab. COVID swab sent to lab. Flu and/or RSV swab vk sent to lab. Inserted saline lock: 20 gauge in left antecubital area, using aseptic technique. Blood collected. Flushed with 10 mL NS. :55 Patient has correct armband on for positive identification. Allergy band placed. Fall aa10 risk band placed. Placed in gown. Bed in low position. Call light in reach. Side rails up X2. Provided Education on: about plan of care. :55 No provider procedures requiring assistance completed. aa10 05:03 IV discontinued. aa10 Administered Medications: 01:14 Drug: NS 0.9% IV 1000 ml IV at 1 bolus Per protocol; to be given as a bolus over 60 aa10 minutes Route: IV; Rate: 1 bolus; Site: left antecubital; :57 Follow up: IV Status: Completed infusion; IV Intake: 1000ml aa10 01:58 Follow up: Response: No adverse reaction; Marked relief of symptoms aa10 01:14 Drug: Ondansetron IVP 8 mg IVP once; over 2 minutes Route: IVP; Site: left antecubital; aa10 05:04 Follow up: Response: No adverse reaction; Marked relief of symptoms aa10 01:14 Drug: Famotidine IVP 20 mg IVP once; dilute with 10 mL 0.9% NaCl; give over 2 minutes aa10 Route: IVP; Site: left antecubital; :57 Follow up: Response: No adverse reaction; Marked relief of symptoms aa10 01:14 Drug: Alum-Mag Hydroxide-Simeth PO Suspension (200 mg-200 mg-20 mg/5 mL) 30 ml PO once aa10 Route: PO; :57 Follow up: Response: No adverse reaction; Marked relief of symptoms aa10 01:14 Drug: Pantoprazole PO 40 mg PO once Route: PO; aa10 :57 Follow up: Response: No adverse reaction; Marked relief of symptoms aa10 Medication: 00:21 VIS not applicable for this client. vc1 Intake: 01:57 IV: 1000ml; Total: 1000ml. aa10 Outcome: 04:51 Discharge ordered by spDasha 05:03 Discharged to home ambulatory, aa10 05:03 Condition: good 05:03 Discharge instructions given to patient, Instructed on discharge instructions, Demonstrated understanding of instructions, Prescriptions given X 2, 05:04 Patient left the ED. aa10 Signatures: Charmaine Chandj6 Anastasiya Hartley RN RN vc1 Andriy Murphy MD MD sp4 Dulce Linn Ayoku, RN RN aa10 Corrections: (The following items were deleted from the chart) 00:20 00:19 PMHx: None; vc1 vc1
[2024-07-29 14:14] VITALS: TEMP 98
[2024-07-29 14:20] VITALS: BP 123/89; O2SAT 100
== END 2024-07-29 05:04 | disposition home or self-care (01) ==
LOC: ER 00:07
DX: K29.00 Acute gastritis without bleeding (principal); K21.00 Gastro-esophageal reflux disease with esophagitis, without bleeding; Z11.52 Encounter for screening for COVID-19
CPT/HCPCS: 36415; 80048; 80076; 83690; 83735; 85025; 85610; 87428; J2405; J2470; J7030

== ENCOUNTER 2024-08-18 09:54 | Emergency (ER) | payer SELFPAY ==
[2024-08-18] MEDS ORDERED: NA CHLORIDE 0.9% 1,000 ML ONE (10:32)
[2024-08-18 10:42] LABS: Absolute Eosinophils 0.1 K/uL (0-0.5); Absolute Lymphocytes (CBC) 1.4 K/uL (0.7-4.9); Absolute Monocytes 0.5 K/uL (0.1-1.3); Basophils % 0.5 % (0-1.3); Eosinophils % 2.9 % (0-4.4); Hematocrit 40.2 % (39.6-49.0); Hemoglobin 14.2 g/dL (13.6-17.9); Lymphocytes % 28.5 % (15.3-44.8); MCH 30.1 pg (27.0-35.0); MCHC 35.4 g/dL (32.0-36.0); MPV 8.3 fL (7.6-11.3); Monocytes % 9.1 % (3.3-12.3); Nucleated Red Blood Cells % 0.1 % (0-0); Platelets 221 thou/uL (152-406); RBC Red Blood Cell Count 4.73 M/uL (4.33-5.43); Red Cell Distribution Width 12.2 % (12.1-15.2); Specific Gravity 1.009 (1.005-1.030); Urine Bilirubin NEGATIVE (Negative); Urine Blood Negative (Negative); Urine Clarity Clear (Clear); Urine Color Colorless (Yellow); Urine Glucose NEGATIVE (Negative); Urine Ketones NEGATIVE (Negative); Urine Microscopic Reflex YN NO UMIC; Urine Nitrite NEGATIVE (Negative); Urine Protein NEGATIVE (Negative); Urine Urobilinogen Normal (Normal); Urine pH 6.5 (5.0-7.0)
[2024-08-18 10:51] LABS: PT Prothrombin Time 11.5 SECONDS (10-13.0); PTT, Activated Partial Thromb 32.8 SECONDS (27.2-37.4); Protime INR 1.01
[2024-08-18 11:00] LABS: Barbiturates NEGATIVE (NEGATIVE); Benzodiazepines NEGATIVE (NEGATIVE); Cocaine NEGATIVE (NEGATIVE); METHAMPHETAM NEGATIVE (NEGATIVE); Methadone NEGATIVE (NEGATIVE); Opiates NEGATIVE (NEGATIVE); Phencyclidine NEGATIVE (NEGATIVE); THC Cannibis NEGATIVE (NEGATIVE)
--- NOTE | 2024-08-18 11:43 | EDPHYS ---
Physician Documentation [facility] Name: Casimiro Jones Age: 28 yrs Sex: Male : 1995 Arrival Date: 08/18/2024 Time: 09:54 Bed 5 Private MD: ED Physician David Johnson HPI: 08/18 11:40 This 28 yrs old Male presents to ER via Ambulatory with complaints of Panic kameron Attack, Drowsy. 11:40 insomnia. Onset: The symptoms/episode began/occurred 3 day(s) ago. Severity of kameron symptoms: At their worst the symptoms were mild in the emergency department the symptoms are unchanged. The patient has experienced similar episodes in the past, several times. Historical: - Allergies: 10:19 Amoxicillin; ld1 - PMHx: 10:19 acid reflux; ld1 - Immunization history:: Adult Immunizations up to date. - Infectious Disease History:: Denies. - Social history:: Smoking status: Patient denies any tobacco usage or history of. ROS: 11:41 Constitutional: Negative for fever, chills, and weight loss, Eyes: Negative for injury, kameron pain, redness, and discharge, ENT: Negative for injury, pain, and discharge, Neck: Negative for injury, pain, and swelling, Cardiovascular: Negative for chest pain, palpitations, and edema, Respiratory: Negative for shortness of breath, cough, wheezing, and pleuritic chest pain, Abdomen/GI: Negative for abdominal pain, nausea, vomiting, diarrhea, and constipation, Back: Negative for injury and pain, : Negative for injury, bleeding, discharge, and swelling, MS/Extremity: Negative for injury and deformity, Skin: Negative for injury, rash, and discoloration, Neuro: Negative for headache, weakness, numbness, tingling, and seizure, Allergy/Immunology: Negative for hives, rash, and allergies, Endocrine: Negative for neck swelling, polydipsia, polyuria, polyphagia, and marked weight changes, Hematologic/Lymphatic: Negative for swollen nodes, abnormal bleeding, and unusual bruising, 11:41 Psych: Positive for insomnia, Exam: 11:41 Constitutional: This is a well developed, well nourished patient who is awake, alert, kameron and in no acute distress. Head/Face: Normocephalic, atraumatic. Eyes: Pupils equal round and reactive to light, extra-ocular motions intact. Lids and lashes normal. Conjunctiva and sclera are non-icteric and not injected. Cornea within normal limits. Periorbital areas with no swelling, redness, or edema. ENT: Nares patent. No nasal discharge, no septal abnormalities noted. Tympanic membranes are normal and external auditory canals are clear. Oropharynx with no redness, swelling, or masses, exudates, or evidence of obstruction, uvula midline. Mucous membranes moist. Neck: Trachea midline, no thyromegaly or masses palpated, and no cervical lymphadenopathy. Supple, full range of motion without nuchal rigidity, or vertebral point tenderness. No Meningismus. Chest/axilla: Normal chest wall appearance and motion. Nontender with no deformity. No lesions are appreciated. Cardiovascular: Regular rate and rhythm with a normal S1 and S2. No gallops, murmurs, or rubs. Normal PMI, no JVD. No pulse deficits. Respiratory: Lungs have equal breath sounds bilaterally, clear to auscultation and percussion. No rales, rhonchi or wheezes noted. No increased work of breathing, no retractions or nasal flaring. Abdomen/GI: Soft, non-tender, with normal bowel sounds. No distension or tympany. No guarding or rebound. No evidence of tenderness throughout. Back: No spinal tenderness. No costovertebral tenderness. Full range of motion. Male : Normal genitalia with no discharge or lesions. Skin: Warm, dry with normal turgor. Normal color with no rashes, no lesions, and no evidence of cellulitis. MS/ Extremity: Pulses equal, no cyanosis. Neurovascular intact. Full, normal range of motion., bilateral aka Neuro: Awake and alert, GCS 15, oriented to person, place, time, and situation. Cranial nerves II-XII grossly intact. Motor strength 5/5 in all extremities. Sensory grossly intact. Cerebellar exam normal. Normal gait. Psych: Awake, alert, with orientation to person, place and time. Behavior, mood, and affect are within normal limits. 11:41 ECG was reviewed by the Attending Physician. Vital Signs: 10:18 BP 139 / 94; Pulse 72; Resp 18; Temp 98(O); Pulse Ox 100% on R/A; Weight 79.38 kg; ld1 Height 5 ft. 9 in. ; Pain 0/10; 10:39 BP 129 / 97; Pulse 79; Resp 18; Pulse Ox 100% on R/A; ld1 11:34 BP 122 / 87; Pulse 64; Resp 18; Pulse Ox 99% on R/A; ld1 11:53 BP 122 / 87; Pulse 81; Resp 16; Pulse Ox 99% ; ll1 10:18 Body Mass Index 25.84 (79.38 kg, 175.26 cm) ld1 10:18 Pain Scale: Adult ld1 MDM: 10:04 Medical Screening Exam initiated kameron 11:41 Differential diagnosis: Nonspecific abd pain, gastritis, cholecystitis, pancreatitis, kameron appendicitis, diverticulitis, viral gastroenteritis, gastroenteritis. Differential Diagnosis altered mental status, sepsis, flu. Data reviewed: vital signs, nurses notes, lab test result(s), EKG. I considered the following discharge prescriptions or medication management in the emergency department Medications were administered in the Emergency Department. See 10:08 Order name: Acetaminophen 08/18 10:08 Order name: Basic Metabolic Panel [facility] 08/18 10:08 Order name: CBC with Diff; Complete Time: 10:52 [facility] 08/18 10:08 Order name: ETOH Level; Complete Time: 11:36 [facility] 08/18 10:08 Order name: Hepatic Function 08/18 10:08 Order name: PT-INR; Complete Time: 10:52 [facility] 08/18 10:08 Order name: Ptt, Activated; Complete Time: 10:52 08/18 10:08 Order name: Salicylate; Complete Time: 11:36 kameron 08/18 10:08 Order name: Urinalysis w/ reflexes; Complete Time: 10:52 08/18 10:08 Order name: Urine Drug Screen; Complete Time: 11:36 [facility] 08/18 10:08 Order name: EKG; Complete Time: 10:08 kameron 08/18 10:08 Order name: EKG - Nurse/Tech; Complete Time: 10:38 [facility] 08/18 10:08 Order name: IV Saline Lock; Complete Time: 10:38 [facility] 08/18 10:08 Order name: Labs collected and sent; Complete Time: 10:38 [facility] 08/18 10:08 Order name: Suicide Screening ([place]); Complete Time: 10:38 [facility] EC:41 Rate is 72 beats/min. Rhythm is regular. QRS [place] is Normal. [place] interval is normal. QRS k[place]on interval is normal. QT interval is normal. No Q waves. T waves are Normal. No ST changes noted. Clinical impression: Normal ECG and No evidence of ischemia. Interpreted by me. Reviewed by me. Administered Medications: 10:39 Drug: NS 0.9% IV 1000 ml IV at 1000 ml once; to be given as a bolus over 60 minutes ld1 Route: IV; Rate: 1000 ml; Site: right antecubital; 11:53 Follow up: Response: No adverse reaction; IV Status: Completed infusion; IV Intake: ll1 1000ml Disposition Summary: 08/18/24 11:43 Discharge Ordered Notes: Location: Home kameron Problem: new kameron Symptoms: have improved kameron Condition: Stable kameron Diagnosis - Insomnia kameron - Nausea kameron Followup: kameron - With: Private Physician - When: 2 - 3 days - Reason: Recheck today's complaints, Continuance of care, Re-evaluation by your physician Followup: kameron - With: Henrry Dickson MD - When: 2 - 3 days - Reason: Recheck today's complaints, Re-evaluation by your physician Discharge Instructions: - Discharge Summary Sheet kameron - Insomnia kameron - Nausea and Vomiting, Adult kameron - Nausea, Adult kameron - Nausea and Vomiting, Adult, [id number] kameron Forms: - Medication Reconciliation Form kameron - Antibiotic Education kameron - Prescription Opioid Use kameron - Patient Portal Instructions kameron - Leadership Thank You Letter [facility] Prescriptions: - Hydroxyzine HCl 50 mg Oral Tablet - take 1 tablet ORAL route every 8 hours As needed; 20 tablet; Refills: 0, kameron Product Selection Permitted Signatures: Dispatcher [employer] EDDavid Leija MD MD cha Sims, Lauren RN RN ld1 Glenna Martinez RN ll1 Corrections: (The following items were deleted from the chart) 10:08 10:08 ACETAMINOPHEN+C.LAB.BRZ ordered. EDMS EDMS 10:08 10:08 BASIC METABOLIC PANEL+C.LAB.BRZ ordered. EDMS EDMS 10:08 10:08 CBC+H.LAB.BRZ ordered. EDMS EDMS 10:08 10:08 ETHANOL+C.LAB.BRZ ordered. EDMS EDMS 10:08 10:08 HEPATIC FUNCTION+C.LAB.BRZ ordered. EDMS EDMS 10:08 10:08 PROTIME (+INR)+COAG.LAB.BRZ ordered. EDMS EDMS 10:08 10:08 PTT, ACTIVATED+COAG.LAB.BRZ ordered. EDMS EDMS 10:08 10:08 SALICYLATE+C.LAB.BRZ ordered. EDMS EDMS 10:08 10:08 Urinalysis+U.LAB.BRZ ordered. EDMS EDMS 10:08 10:08 URINE DRUG SCREEN+UC.LAB.BRZ ordered. EDMS EDMS
--- NOTE | 2024-08-18 11:43 | ER ---
Nurse's Notes [facility] Name: Casimiro Jones Age: 28 yrs Sex: Male : 1995 Arrival Date: 08/18/2024 Time: 09:54 Bed 5 Private MD: Diagnosis: Insomnia;Nausea Presentation: 08/18 10:18 Chief complaint: Patient states: Pt reports being drowsy, difficulty sleeping. Feeling ld1 anxious. Coronavirus screen: At this time, the client does not indicate any symptoms associated with coronavirus-19. Ebola Screen: No symptoms or risks identified at this time. Initial Sepsis Screen: Does the patient meet any 2 criteria? No. Patient's initial sepsis screen is negative. Does the patient have a suspected source of infection? No. Patient's initial sepsis screen is negative. Risk Assessment: Do you want to hurt yourself or someone else? Patient reports no desire to harm self or others. Onset of symptoms was August 18, 2024. 10:18 Method Of Arrival: Ambulatory ld1 10:18 Acuity: FIONA 3 ld1 Triage Assessment: 10:19 General: Appears in no apparent distress. comfortable, Behavior is cooperative, ld1 anxious. Pain: Denies pain. EENT: No signs and/or symptoms were reported regarding the EENT system. Neuro: Level of Consciousness is awake, alert, obeys commands, Oriented to person, place, time, situation. Cardiovascular: Capillary refill < 3 seconds Patient's skin is warm and dry. Respiratory: Airway is patent Respiratory effort is even, unlabored. GI: Abdomen is flat, non-distended. : No signs and/or symptoms were reported regarding the genitourinary system. Derm: No signs and/or symptoms reported regarding the dermatologic system. Musculoskeletal: No signs and/or symptoms reported regarding the musculoskeletal system. Historical: - Allergies: 10:19 Amoxicillin; ld1 - PMHx: 10:19 acid reflux; ld1 - Immunization history:: Adult Immunizations up to date. - Infectious Disease History:: Denies. - Social history:: Smoking status: Patient denies any tobacco usage or history of. Screenin:20 [facility] ED Fall Risk Assessment (Adult) History of falling in the last 3 months, ld1 including since admission No falls in past 3 months (0 pts) Confusion or Disorientation No (0 pts) Intoxicated or Sedated No (0 pts) Impaired Gait No (0 pts) Mobility Assist Device Used No (0 pt) Altered Elimination No (0 pt) Score/Fall Risk Level 0 - 2 = Low Risk Oriented to surroundings, Hourly rounding (assess needs \T\ fall precautionary measures) done. Abuse screen: Denies threats or abuse. Denies injuries from another. Nutritional screening: No deficits noted. Tuberculosis screening: No symptoms or risk factors identified. Assessment: 10:20 Reassessment: See triage assessment. ld1 11:53 Reassessment: No changes from previously documented assessment. Patient and/or family ll1 updated on plan of care and expected duration. Pain level reassessed. Patient is alert, oriented x 3, equal unlabored respirations, skin warm/dry/pink. Vital Signs: 10:18 BP 139 / 94; Pulse 72; Resp 18; Temp 98(O); Pulse Ox 100% on R/A; Weight 79.38 kg; ld1 Height 5 ft. 9 in. ; Pain 0/10; 10:39 BP 129 / 97; Pulse 79; Resp 18; Pulse Ox 100% on R/A; ld1 11:34 BP 122 / 87; Pulse 64; Resp 18; Pulse Ox 99% on R/A; ld1 11:53 BP 122 / 87; Pulse 81; Resp 16; Pulse Ox 99% ; ll1 10:18 Body Mass Index 25.84 (79.38 kg, 175.26 cm) ld1 10:18 Pain Scale: Adult ld1 ED Course: 10:01 Patient arrived in ED. [email or web address] 10:04 David Johnson MD is Attending Physician. [facility] 10:15 Jazmin Lovell, MERCEDEZ is Primary Nurse. ld1 10:19 Triage completed. ld1 10:19 Arm band placed on right wrist. ld1 10:20 Patient has correct armband on for positive identification. Placed in gown. Bed in low ld1 position. Call light in reach. Side rails up X2. alarm security or surveillance monitor on. Pulse ox on. NIBP on. Door closed. Noise minimized. Warm blanket given. 10:20 No provider procedures requiring assistance completed. ld1 10:38 Urinalysis w/ reflexes Sent. ld1 10:39 Urine Drug Screen Sent. ld1 10:39 Inserted saline lock: 20 gauge in right antecubital area, using aseptic technique. ld1 Blood collected. Flushed with 10 mL NS. 11:42 Henrry Dickson MD is Referral Physician. [facility] 11:54 Provided Education on: ER procedures and process. ll1 11:54 IV discontinued, intact, bleeding controlled, No redness/swelling at site. Pressure ll1 dressing applied. Administered Medications: 10:39 Drug: NS 0.9% IV 1000 ml IV at 1000 ml once; to be given as a bolus over 60 minutes ld1 Route: IV; Rate: 1000 ml; Site: right antecubital; 11:53 Follow up: Response: No adverse reaction; IV Status: Completed infusion; IV Intake: ll1 1000ml Medication: 10:20 VIS not applicable for this client. ld1 Intake: 11:53 IV: 1000ml; Total: 1000ml. ll1 Outcome: 11:43 Discharge ordered by MD. [facility] 11:54 Discharged to home ambulatory, 1 11:54 Condition: stable 11:54 Discharge instructions given to patient, Instructed on discharge instructions, follow up and referral plans. medication usage, Demonstrated understanding of instructions, follow-up care, medications, Prescriptions given X 1, 11:54 Patient left the ED. ll1 Signatures: David Johnson MD MD cha Lewis, Lynsay RN RN ll1 Jazmin Lovell RN RN ld1 Tiffani Luna cj3
[2024-08-18 12:05] VITALS: TEMP 98
[2024-08-18 12:20] VITALS: BP 122/87; O2SAT 99
[2024-08-18 12:37] LABS: ALT/SGPT 23 U/L (16-61); AST/SGOT 14 U/L (15-37); Albumin 4.3 g/dL (3.4-5.0); Albumin/Globulin Ratio 1.2 (1.1-1.8); Alkaline Phosphatase 76 U/L (45-117); Anion Gap 8.5 mEq/L (5.0-15.0); BUN Blood Urea Nitrogen 15 mg/dL (7-18); Bicarbonate 28 mEq/L (21-32); Bilirubin Direct 0.3 mg/dL (0-0.2); Bilirubin Indirect, Calculated 1.1 mg/dL (0.2-0.8); Bilirubin Total 1.4 mg/dL (0.2-1.0); Globulin 3.6 g/dL (2.3-3.5); Glomerular Filtration Rate 100 ml/min (=/>90); Glucose Level 113 mg/dL (74-106); Potassium 3.5 mEq/L (3.5-5.1); Protein, Total 7.9 g/dL (6.4-8.2); Sodium Level 138 mEq/L (136-145)
--- NOTE | 2024-08-19 12:01 | EKG ---
Test Date: 2024-08-18 Test Time: 10:31:17 Beauty Artist: MEAGAN MEASUREMENT RESULTS: Intervals: Rate: 72 NH: 166 QRSD: 82 QT: 366 QTc: 400 [place]: P: 48 NH: 166 QRS: 76 T: 65 INTERPRETIVE STATEMENTS: Normal sinus rhythm Normal ECG Compared to ECG 12/29/2021 14:24:11 No significant changes Electronically Signed On 08-19-24 11:59:01 CDT by Evan Mcmahon
== END 2024-08-18 11:54 | disposition home or self-care (01) ==
LOC: ER 09:54
DX: G47.00 Insomnia, unspecified (principal); R11.0 Nausea
CPT/HCPCS: 36415; 80048; 80076; 80143; 80179; 80307; 81003; 82077; 85025; 85610; 85730; 93005; 96360; 99285; J7030